=== PATIENT | male | born 1990 | race African-American/Black ===

== ENCOUNTER 2018-05-20 07:41 | Inpatient (IN) | payer OTHER ==
[~2018-05-20] VITALS: Ht 177.8 cm; Wt 87.1 kg
[2018-05-20] MEDS ORDERED: SODIUM CHLORIDE 0.9% 1,000 ML IV ONE ×2 (08:00→10:15)
[2018-05-20] MEDS ORDERED: ACETAMINOPHEN 500 MG TABLET PO ONE (08:00)
[2018-05-20] MEDS ORDERED: PHEN-460 PO (08:08)
[2018-05-20] MEDS ORDERED: CLOB10TA PO (08:08)
[2018-05-20] MEDS ORDERED: LEVE250T55 PO (08:08)
[2018-05-20] MEDS ORDERED: DIVA125T32 PO (08:08)
[2018-05-20] MEDS ORDERED: AZITHROMYCIN 500 MG/NS 250 ML IV ONE (08:30)
[2018-05-20] MEDS ORDERED: CefTRIAXone SODIUM 1 GM in DEXTROSE 5%-WATER 10 ML IV ONE (08:30)
[2018-05-20 08:38] LABS: HEMATOCRIT 43.7 % (41-53); HEMOGLOBIN 14.8 g/dL (13.5-17.5); MEAN CORPUSCULAR HEMOGLOBIN 29.7 pg (26.0-34.0); MEAN CORPUSCULAR HGB CONC 33.8 G/dL (31.0-37.0); MEAN CORPUSCULAR VOLUME 88 fL (80-100); PLATELET COUNT (AUTO) 108 K/uL (150-450); RED BLOOD CELL COUNT(AUTO) 4.97 MIL/uL (4.50-5.90); RED CELL DISTRIBUTION WIDTH 14.1 % (11.5-14.5)
[2018-05-20 08:48] LABS: ANION GAP 7 mmol/L (8-16); CALCIUM, TOTAL 8.3 mg/dL (8.8-10.5); CARBON DIOXIDE 30 mmol/L (22-29); CHLORIDE 106 mmol/L (98-107); CREATININE 1.04 mg/dL (0.60-1.30); GLOMERULAR FILTR. RATE CALC > 60 mL/min (>60); GLUCOSE,RANDOM 114 mg/dL (70-110); POTASSIUM 4.6 mmol/L (3.5-5.1); SODIUM SERUM 143 mmol/L (136-145); UREA NITROGEN, BLOOD 11 mg/dL (7-18)
[2018-05-20 08:49] LABS: INFLUENZA TYPE A NEGATIVE FOR TYPE A (NEGATIVE)
[2018-05-20 08:49] LABS: INR 1.1 (0.9-1.1); PROTHROMBIN TIME 11.2 SEC (9.4-11.6)
[2018-05-20 08:50] LABS: INFLUENZA TYPE B NEGATIVE FOR TYPE B (NEGATIVE)
[2018-05-20 08:59] LABS: BAND NEUTROPHILS % (MANUAL) 22 % (0-5); LYMPHOCYTES % (MANUAL) 18 % (22-44); SEGMENTED NEUTROPHILS % 60 % (40-70)
[2018-05-20 09:14] LABS: ALANINE AMINOTRANSFERASE 26 U/L (12-78); ALKALINE PHOSPHATASE 61 U/L (46-116); ASPARTATE AMINOTRANSFERASE 26 U/L (15-37); BILIRUBIN,TOTAL 0.4 mg/dL (0.1-1.0); CREATINE KINASE, TOTAL ONLY 276 U/L (39-308)
[2018-05-20 09:15] LABS: PHENYTOIN (DILANTIN) 3.7 mcg/mL (10.0-20.0); VALPROIC ACID 87 mcg/mL (50-100)
[2018-05-20 09:17] LABS: LACTIC ACID 1.8 mmol/L (0.4-2.0)
[2018-05-20] MEDS ORDERED: PHENYTOIN SODIUM 750 MG in SODIUM CHLORIDE 0.9% 100 ML IV ONE (09:45)
[2018-05-20] MEDS ORDERED: ONDANSETRON HCL 4 MG/2 ML VIAL IVP PRN ×2 (10:30→11:15)
[2018-05-20] MEDS ORDERED: ACETAMINOPHEN 325 MG TABLET PO PRN (10:30)
[2018-05-20] MEDS ORDERED: ALBUTEROL SULFATE 2.5 MG/0.5 ML NEB SOLUTION NEB PRN (11:15)
[2018-05-20] MEDS ORDERED: MAGNESIUM HYDROXIDE SUSPENSION 30 ML UDCUP PO PRN (11:15)
[2018-05-20 12:19] VITALS: BP 107/68
[2018-05-20 14:16] LABS: APPEARANCE,URINE CLEAR (CLEAR); BILIRUBIN,URINE NEGATIVE (NEGATIVE); GLUCOSE, URINE (UA) NEGATIVE (NEGATIVE); KETONES,URINE NEGATIVE (NEGATIVE); LEUKOCYTE ESTERASE ,URINE NEGATIVE (NEGATIVE); NITRATE,URINE NEGATIVE (NEGATIVE); OCCULT BLOOD,URINE NEGATIVE (NEGATIVE); PROTEIN,URINE NEGATIVE (NEGATIVE)
[2018-05-20] MEDS: HEPARIN SODIUM,PORCINE 5,000 UNITS/ML VIAL SQ SCH (16:00)
[2018-05-20 16:38] VITALS: BP 121/72
[2018-05-20] MEDS: DIVALPROEX SODIUM 500 MG DR TABLET PO SCH ×3 (17:34→21:40)
[2018-05-20 19:58] VITALS: BP 115/67
[2018-05-20] MEDS: LevETIRAcetam 250 MG TABLET PO SCH ×2 (20:36→21:40)
[2018-05-20] MEDS: DOCUSATE SODIUM 100 MG CAPSULE PO SCH ×2 (20:36→21:40)
[2018-05-20] MEDS: SODIUM CHLORIDE 0.45% 1,000 ML IV SCH ×2 (20:36→20:38)
[2018-05-20] MEDS: PHENYTOIN 100 MG/4 ML SUSPENSION UDCUP PO SCH ×2 (20:37→21:40)
[2018-05-20] MEDS: ACETAMINOPHEN 325 MG TABLET PO PRN ×2 (20:37→21:41)
[2018-05-21] VITALS (7 sets, daily range): BP systolic 102–124; BP diastolic 59–71
[2018-05-21] MEDS: SODIUM CHLORIDE 0.45% 1,000 ML IV SCH ×3 (06:25→23:36)
[2018-05-21 06:26] LABS: BASOPHILS % (AUTO) 0.1 % (0.0-2.0); EOSINOPHILS % (AUTO) 0.4 % (1.0-6.0); HEMATOCRIT 40.1 % (41-53); HEMOGLOBIN 13.5 g/dL (13.5-17.5); LYMPHOCYTES # (AUTO) 1.7 K/uL (1.0-4.8); LYMPHOCYTES % (AUTO) 13.4 % (22.0-44.0); MEAN CORPUSCULAR HEMOGLOBIN 29.5 pg (26.0-34.0); MEAN CORPUSCULAR HGB CONC 33.6 G/dL (31.0-37.0); MEAN CORPUSCULAR VOLUME 88 fL (80-100); MONOCYTES # (AUTO) 1.1 K/uL (0.1-1.0); MONOCYTES % (AUTO) 8.8 % (2.0-9.0); NEUTROPHILS # (AUTO) 9.7 K/uL (1.8-7.7); NEUTROPHILS % (AUTO) 77.3 % (40.0-70.0); PLATELET COUNT (AUTO) 101 K/uL (150-450); RED BLOOD CELL COUNT(AUTO) 4.56 MIL/uL (4.50-5.90); RED CELL DISTRIBUTION WIDTH 14.5 % (11.5-14.5)
[2018-05-21 06:40] LABS: ANION GAP 4 mmol/L (8-16); CALCIUM, TOTAL 7.8 mg/dL (8.8-10.5); CARBON DIOXIDE 31 mmol/L (22-29); CHLORIDE 105 mmol/L (98-107); CREATININE 0.83 mg/dL (0.60-1.30); GLOMERULAR FILTR. RATE CALC > 60 mL/min (>60); GLUCOSE,RANDOM 91 mg/dL (70-110); POTASSIUM 3.6 mmol/L (3.5-5.1); SODIUM SERUM 140 mmol/L (136-145); UREA NITROGEN, BLOOD 8 mg/dL (7-18)
[2018-05-21] MEDS: HEPARIN SODIUM,PORCINE 5,000 UNITS/ML VIAL SQ SCH ×5 (08:00→23:11)
[2018-05-21] MEDS: DIVALPROEX SODIUM 500 MG DR TABLET PO SCH ×3 (09:06→19:47)
[2018-05-21] MEDS: LevETIRAcetam 250 MG TABLET PO SCH ×2 (09:06→19:47)
[2018-05-21] MEDS: PANTOPRAZOLE SODIUM 40 MG DR TABLET PO SCH (09:06)
[2018-05-21] MEDS: DOCUSATE SODIUM 100 MG CAPSULE PO SCH ×2 (09:06→19:47)
[2018-05-21] MEDS: CefTRIAXone SODIUM 1 GM in DEXTROSE 5%-WATER 10 ML IV SCH (09:31)
[2018-05-21] MEDS: AZITHROMYCIN 500 MG/NS 250 ML IV SCH (09:39)
[2018-05-21] MEDS: ACETAMINOPHEN 325 MG TABLET PO PRN (15:39)
[2018-05-21] MEDS: PHENYTOIN 100 MG/4 ML SUSPENSION UDCUP PO SCH (19:48)
[2018-05-22 04:02] VITALS: BP 100/58
[2018-05-22 06:21] LABS: BASOPHILS % (AUTO) 0.1 % (0.0-2.0); EOSINOPHILS % (AUTO) 0.6 % (1.0-6.0); HEMATOCRIT 39.5 % (41-53); HEMOGLOBIN 13.6 g/dL (13.5-17.5); LYMPHOCYTES # (AUTO) 1.6 K/uL (1.0-4.8); LYMPHOCYTES % (AUTO) 19.2 % (22.0-44.0); MEAN CORPUSCULAR HEMOGLOBIN 30.1 pg (26.0-34.0); MEAN CORPUSCULAR HGB CONC 34.4 G/dL (31.0-37.0); MEAN CORPUSCULAR VOLUME 88 fL (80-100); MONOCYTES # (AUTO) 0.7 K/uL (0.1-1.0); MONOCYTES % (AUTO) 8.8 % (2.0-9.0); NEUTROPHILS # (AUTO) 5.9 K/uL (1.8-7.7); NEUTROPHILS % (AUTO) 71.3 % (40.0-70.0); PLATELET COUNT (AUTO) 108 K/uL (150-450); RED BLOOD CELL COUNT(AUTO) 4.51 MIL/uL (4.50-5.90); RED CELL DISTRIBUTION WIDTH 14.2 % (11.5-14.5)
[2018-05-22 06:30] LABS: ANION GAP 4 mmol/L (8-16); CALCIUM, TOTAL 7.9 mg/dL (8.8-10.5); CARBON DIOXIDE 32 mmol/L (22-29); CHLORIDE 103 mmol/L (98-107); CREATININE 0.88 mg/dL (0.60-1.30); GLOMERULAR FILTR. RATE CALC > 60 mL/min (>60); GLUCOSE,RANDOM 94 mg/dL (70-110); POTASSIUM 3.8 mmol/L (3.5-5.1); SODIUM SERUM 139 mmol/L (136-145); UREA NITROGEN, BLOOD 7 mg/dL (7-18)
[2018-05-22] MEDS: HEPARIN SODIUM,PORCINE 5,000 UNITS/ML VIAL SQ SCH ×3 (08:02→23:09)
[2018-05-22] MEDS: SODIUM CHLORIDE 0.45% 1,000 ML IV SCH ×2 (08:03→22:15)
[2018-05-22] MEDS: LevETIRAcetam 250 MG TABLET PO SCH ×2 (08:03→19:47)
[2018-05-22] MEDS: DIVALPROEX SODIUM 500 MG DR TABLET PO SCH ×3 (08:03→19:47)
[2018-05-22] MEDS: DOCUSATE SODIUM 100 MG CAPSULE PO SCH ×2 (08:03→19:47)
[2018-05-22] MEDS: PANTOPRAZOLE SODIUM 40 MG DR TABLET PO SCH (08:03)
[2018-05-22 08:30] VITALS: BP 120/68
[2018-05-22] MEDS: CefTRIAXone SODIUM 1 GM in DEXTROSE 5%-WATER 10 ML IV SCH (10:18)
[2018-05-22] MEDS: AZITHROMYCIN 500 MG/NS 250 ML IV SCH (10:19)
[2018-05-22 11:48] VITALS: BP 130/70
[2018-05-22 16:25] VITALS: BP 116/74
[2018-05-22] MEDS: PHENYTOIN 100 MG/4 ML SUSPENSION UDCUP PO SCH (19:47)
[2018-05-22 19:59] VITALS: BP 125/78
[2018-05-22 23:53] VITALS: BP 110/66
[2018-05-23 03:50] VITALS: BP 117/53
[2018-05-23 07:23] VITALS: BP 124/71
[2018-05-23] MEDS: DIVALPROEX SODIUM 500 MG DR TABLET PO SCH (08:34)
[2018-05-23] MEDS: DOCUSATE SODIUM 100 MG CAPSULE PO SCH (08:34)
[2018-05-23] MEDS: LevETIRAcetam 250 MG TABLET PO SCH (08:34)
[2018-05-23] MEDS: PANTOPRAZOLE SODIUM 40 MG DR TABLET PO SCH (08:34)
[2018-05-23] MEDS: HEPARIN SODIUM,PORCINE 5,000 UNITS/ML VIAL SQ SCH (08:35)
[2018-05-23] MEDS: SODIUM CHLORIDE 0.45% 1,000 ML IV SCH (08:36)
[2018-05-23] MEDS: CefTRIAXone SODIUM 1 GM in DEXTROSE 5%-WATER 10 ML IV SCH (10:36)
[2018-05-23 11:02] VITALS: BP 118/79
[2018-05-23] MEDS: AZITHROMYCIN 500 MG/NS 250 ML IV SCH (11:31)
[2018-05-23] MEDS ORDERED: LEVO500 PO (11:39)
== END 2018-05-23 13:15 | disposition home or self-care (01) | DRG 720 ==
LOC: EMS 07:42 → 5N 11:07 → 5S 05-22 17:30
PROVIDERS: ADMIT Internal Medicine; ATTEND Internal Medicine
DX: A41.9 Sepsis, unspecified organism (principal); J18.9 Pneumonia, unspecified organism; R62.50 Unspecified lack of expected normal physiological development in childhood; G40.909 Epilepsy, unspecified, not intractable, without status epilepticus; Z28.21 Immunization not carried out because of patient refusal
CPT/HCPCS: 83605; 87040; 87804; 93005; 96365; 96367; 96368; G0378; J0456; J0696; J1165; J1644; J7030; J7050; J7060